=== PATIENT | male | born 1970 | race Caucasian/White ===

== ENCOUNTER 2021-02-14 11:45 | Day surgery (SDC) | payer BC ==
[2021-02-05 16:13] VITALS: BMI 40.1
[2021-02-14] MEDS ORDERED: BUPIVACAINE LIPOSOME/PF (EXPAREL) 266 MG/20 ML VIAL ONE (15:20)
[2021-02-14] MEDS ORDERED: SODIUM CHLORIDE 0.9% P/F 10 ML VIAL IJ ONE (15:20)
[2021-02-14] MEDS ORDERED: MIDAZOLAM HCL 2 MG/2 ML SINGLE DOSE VIAL ONE ×3 (15:20→16:48)
[2021-02-14] MEDS ORDERED: BUPIVACAINE HCL/PF 0.5% (5MG/ML) 10 ML VIAL ONE (15:20)
[2021-02-14] MEDS ORDERED: BUPIVACAINE HCL/PF 0.5% (5 MG/ML) 30 ML VIAL IJ ONE (15:55)
[2021-02-14] MEDS ORDERED: VANCOMYCIN 1,000 MG VIAL (RESTRICTED TO ID ONLY) ONE (15:55)
[2021-02-14] MEDS ORDERED: PROPOFOL 20 ML ONE (16:06)
[2021-02-14] MEDS ORDERED: ceFAZolin SODIUM 1 GM VIAL ONE ×3 (16:25→19:12)
[2021-02-14] MEDS ORDERED: TRANEXAMIC ACID 1000 MG/10 ML VIAL ONE ×2 (16:30→19:12)
[2021-02-14] MEDS ORDERED: BENZOIN 118 ML SPRAY.PUMP TP ONE (18:35)
[2021-02-14] MEDS ORDERED: ONDANSETRON 4 MG/2 ML VIAL IVPUSH PRN ×2 (19:17→19:23)
[2021-02-14] MEDS ORDERED: ACETAMINOPHEN 1000 MG/100 ML VIAL (NON FORMULARY) IVPB ONE (19:17)
[2021-02-14] MEDS ORDERED: oxyCODONE HCL 5 MG TABLET PO PRN (19:17)
[2021-02-14] MEDS ORDERED: MAG HYDROX/AL HYDROX/SIMETH 30 ML UNIT-DOSE CUP PO PRN (19:23)
[2021-02-14] MEDS ORDERED: MAGNESIUM HYDROX 2400MG/30ML ORAL SUSPENSION 30 ML CUP PO PRN (19:23)
[2021-02-14] MEDS ORDERED: LACTATED RINGERS SOLUTION 1,000 ML IV SCH ×2 (19:30)
[2021-02-14] MEDS ORDERED: ACETAMINOPHEN INJECTION 100 ML IVPB ONE (19:39)
[2021-02-14] MEDS: CELECOXIB 200 MG CAPSULE PO SCH (21:20)
[2021-02-14] MEDS: ASPIRIN 325 MG TABLET PO SCH (21:20)
[2021-02-14] MEDS: SENNOSIDES/DOCUSATE COMBO (SENNA PLUS) TABLET (UD) PO SCH (21:21)
[2021-02-15] MEDS: CEFAZOLIN 3 GM in DEXTROSE 5%-WATER - 100 ML IVPB SCH ×3 (00:29→14:48)
[2021-02-15] MEDS: oxyCODONE HCL 5 MG TABLET PO PRN ×5 (00:29→18:30)
[2021-02-15] MEDS: ACETAMINOPHEN 500 MG TABLET (FP) PO SCH ×4 (02:30→20:22)
[2021-02-15 07:42] LABS: HEMATOCRIT 39.3 % (35.4-49); HEMOGLOBIN 12.9 GM/dl (11.7-16.9); MCH 32.4 pg (25.7-33.7); MCHC 32.7 g/dl (32.0-35.9); MEAN PLT VOLUME 9.8 fl (7.5-11.1); PLATELET COUNT 224 10^3/uL (134-434); RBC 3.97 M/mm3 (4.00-5.60); RDW 12.4 % (11.9-15.9); WHITE BLOOD COUNT 11.5 K/mm3 (4.0-10.8)
[2021-02-15 07:48] LABS: CALCIUM 8.6 mg/dl (8.5-10); CREATININE 0.9 mg/dl (0.55-1.3)
[2021-02-15] MEDS: CELECOXIB 200 MG CAPSULE PO SCH ×2 (11:11→21:14)
[2021-02-15] MEDS: SENNOSIDES/DOCUSATE COMBO (SENNA PLUS) TABLET (UD) PO SCH ×2 (11:12→21:14)
[2021-02-15] MEDS: PANTOPRAZOLE 40 MG TABLET PO SCH (11:12)
[2021-02-15] MEDS: ASPIRIN 325 MG TABLET PO SCH ×2 (11:12→21:14)
[2021-02-16] MEDS: ACETAMINOPHEN 500 MG TABLET (FP) PO SCH ×2 (06:08→11:15)
[2021-02-16 08:33] LABS: HEMATOCRIT 32.3 % (35.4-49); HEMOGLOBIN 11.1 GM/dl (11.7-16.9); MCH 33.6 pg (25.7-33.7); MCHC 34.4 g/dl (32.0-35.9); MEAN CELL VOLUME 97.9 fl (80-96); PLATELET COUNT 200 10^3/uL (134-434); WHITE BLOOD COUNT 9.4 K/mm3 (4.0-10.8)
[2021-02-16] MEDS: CELECOXIB 200 MG CAPSULE PO SCH (11:16)
[2021-02-16] MEDS: ASPIRIN 325 MG TABLET PO SCH (11:16)
[2021-02-16] MEDS: PANTOPRAZOLE 40 MG TABLET PO SCH (11:16)
[2021-02-16] MEDS: SENNOSIDES/DOCUSATE COMBO (SENNA PLUS) TABLET (UD) PO SCH (11:16)
[2021-02-16 14:02] VITALS: BP 116/55; PULSE 95; TEMP 98.3
== END 2021-02-16 15:05 | disposition home or self-care (01) ==
LOC: FASUSAT 11:45 → FM/S 20:02 → FASUSAT 02-16 15:05
PROVIDERS: ATTEND Orthopaedic Surgery Adult Reconstructive Orthopaedic Surgery
PROC: 0SRC0J9 Replacement of Right Knee Joint with Synthetic Substitute, Cemented, Open Approach (ICD-10-PCS; principal; 2021-02-14 16:58)
DX: M17.11 Unilateral primary osteoarthritis, right knee (principal)
CPT/HCPCS: 27447; C1776; 36415; 73560-TC-RT-FY; 80048; 85027; 94760; 97010-GP; 97116-GP; 97163-GP; J0131